=== PATIENT | male | born 1990 | race Caucasian/White ===

== ENCOUNTER 2018-10-12 03:03 | Emergency (ER) | payer OTHER ==
[2018-10-12] MEDS ORDERED: NS 0.9% 1000 ML** 2,000 ML IV ONE (03:26)
[2018-10-12] MEDS ORDERED: Ketorolac INJ* 30 MG/ML 1 ML VIAL IV PUSH ONE (03:26)
[2018-10-12] MEDS ORDERED: Ondansetron INJ* 2 MG/ML VIAL IV ONE (03:26)
[2018-10-12] MEDS ORDERED: Morphine 4 MG/ML VIAL (1 ml) 4 MG/ML VIAL IV ONE (03:26)
--- NOTE | 2018-10-12 03:34 | ED ---
Abdominal Pain/Male - HPI Summary HPI Summary: The patient is a 28 y/o M presenting to [facility] with a chief complaint of sudden onset right-sided abd pain around 1800 last night. He reports that he had been driving home from [place] when they stopped for food. At the time of eating, he felt alright but then developed the abdominal pain and nausea. He tried to vomit and have a BM without any relief. The pain continued to worsen throughout the night, and he took Advil and Pepto Bismol, which did help him feel better until 0115. The pain returned and worsened, currently rated 9/10 in severity. He denies any fever or vomiting. He is concerned for appendicitis. PMHx: asthma , kidney stone 10 years ago. Nonsmoker, occasional EtOH, marijuana use. - History of Current Complaint Chief Complaint: EDAbdPain Stated Complaint: APPENDICITIS PER PT Time Seen by Provider: 10/12/18 03:22 Hx Obtained From: Patient Onset/Duration: Sudden Onset, Lasting Hours - since 1800, Still Present Timing: Lasting Hours Severity Initially: Severe Severity Currently: Severe Pain Intensity: 9 Pain Scale Used: 0-10 Numeric Location: Other - right-sided Radiates: No Character: Sharp Aggravating Factor(s): Nothing Alleviating Factor(s): Other: - Advil and Pepto Bismol Associated Signs And Symptoms: Positive: Nausea. Negative: Fever, Vomiting - Allergies/Home Medications Allergies/Adverse Reactions: Allergies Allergy/AdvReac Type Severity Reaction Status Date / Time No Known Allergies Allergy Verified 10/12/18 03:07 Home Medications: Home Medications Albuterol HFA INHALER* [Ventolin HFA Inhaler*] 2 puff INH Q4HR PRN 10/12/18 [ History Confirmed 10/12/18] PMH/Surg Hx/FS Hx/Imm Hx Endocrine/Hematology History: Denies: Hx Diabetes Cardiovascular History: Denies: Hx Hypertension Respiratory History: Reports: Hx Asthma History: Reports: Hx Kidney Stones - Surgical History Surgical History: None Surgery Procedure, Year, and Place: none Infectious Disease History: No Infectious Disease History: Denies: Traveled Outside the [place] in Last 30 Days - Family History Known Family History: Negative: Diabetes - Social History Alcohol Use: Occasionally Hx Substance Use: Yes Substance Use Type: Reports: Marijuana Hx Tobacco Use: No Smoking Status (MU): Never Smoked Tobacco Review of Systems Negative: Fever Positive: Abdominal Pain - right-sided, Nausea. Negative: Vomiting All Other Systems Reviewed And Are Negative: Yes Physical Exam - Summary Physical Exam Summary: Appearance: Well-appearing, Well-nourished, In quite a bit of pain, somewhat fidgety, perhaps colickly Skin: Warm, dry, no obvious rash Eyes: sclera anicteric, no conjunctival pallor ENT: mucous membranes moist, pharynx appears normal Neck: Supple, nontender Respiratory: Clear to auscultation, no signs of respiratory distress Cardiovascular: Normal S1, S2. No murmurs. Normal distal pulses in tibial and radial bilaterally. Abdomen: Soft, tenderness in right side, apprehensiveness occludes reliable exam , normal active bowel sounds present Musculoskeletal: Normal, Strength/ROM Intact Neurological: A&Ox3, awake and alert, mentation is normal, speech is fluent and appropriate Psychiatric: affect is normal, does not appear anxious or depressed Triage Information Reviewed: Yes Vital Signs On Initial Exam: Initial Vitals Temp Pulse Resp BP Pulse Ox 98.2 F 69 19 129/84 100 10/12/18 03:04 10/12/18 03:04 10/12/18 03:04 10/12/18 03:04 10/12/18 03:04 Vital Signs Reviewed: Yes Diagnostics - Vital Signs Vital Signs Temp Pulse Resp BP Pulse Ox 10/12/18 03:04 98.2 F 69 19 129/84 100 - Laboratory Result Diagrams: 10/12/18 03:28 10/12/18 03:28 Lab Statement: Any lab studies that have been ordered have been reviewed, and results considered in the medical decision making process. - CT Abd/Pel CT CT Interpretation Completed By: Radiologist Summary of CT Findings: Impression: Four millimeter calcified stone located in the right mid ureter. This causes moderate right-sided hydronephrosis with perinephric stranding. ED physician has reviewed this report. Re-Evaluation - Re-Evaluation First Eval Re-Evaluation Time: 06:00 Change: Improved Comment: We discussed results and discharge plan. His pain has improved. Abdominal Pain Male Course/Dx - Course Course Of Treatment: Patient is a 28 y/o M with cc of sudden onset right-sdied abd pain starting around 1800 last night after eating with associated nausea without vomiting or fever. Mild relief with Advil and Pepto Bismol but pain returned. Hx of kidney stones 10 years ago. Upon physical exam, the patient appears to be in quite a bit of pain, somewhat fidgety, perhaps colickly, tenderness in right side, apprehensiveness occludes reliable exam. In the ED course, the patient was administered fluids, Zofran, Morphine, and Toradol. Blood work reveals WBCs of 11.7, abs neuts of 8.6, and total bili of 1.40. UA reveals 1+ protein, 1+ ketones, 3+ blood, and 3+ RBCs. Abdominopelvic CT Impression: Four millimeter calcified stone located in the right mid ureter. This causes moderate right-sided hydronephrosis with perinephric stranding. He will be discharged home with urology follow up. He agrees with this plan. - Diagnoses Provider Diagnoses: Renal colic on right side Discharge - Sign-Out/Discharge Documenting (check all that apply): Patient Departure - Patient will be discharged home. Patient Received Moderate/Deep Sedation with Procedure: No - Discharge Plan Condition: Stable Disposition: HOME Prescriptions: Ondansetron ODT TAB* [Zofran 4 MG Odt TAB*] 8 mg PO Q6H PRN #15 tab.odt PRN Reason: Nausea oxyCODONE/Acetamin 5/325 MG* [Percocet 5/325 TAB*] 2 tab PO Q4H PRN #15 tab MDD 6 PRN Reason: Pain - Severe Patient Education Materials: Renal Colic (ED) Referrals: Kehinde Rodriguez MD [Primary Care Provider] - Gordo Ivey MD [Medical Doctor] - Additional Instructions: Take 2 alleve OTC twice a day as a baseline until you pass the stone, and supplement that with the percocet as needed. If the stone does not pass by Tuesday, contact the urologist for further assistance. - Billing Disposition and Condition Condition: STABLE Disposition: Home - Attestation Statements Document Initiated by Scribe: Yes Documenting Scribe: Lashawn Dejesus Provider For Whom Hallie is Documenting (Include Credential): Dr. Andrez Simental MD Scribe Attestation: Lashawn Wilhelm scribed for Dr. Andrez Simental MD on 10/16/18 at 0146. Scribe Documentation Reviewed: Yes Provider Attestation: The documentation as recorded by the anastasiyaibamanda, Lashawn Dejesus accurately reflects the service I personally performed and the decisions made by me, Dr. Andrez Simental MD Status of Hallie Document: Viewed
[2018-10-12 03:50] LABS: ABS Eosinophils 0.1 10^3/ul (0-0.6); ABS Lymphocytes 2.1 10^3/ul (1.0-4.8); ABS Monocytes 0.8 10^3/ul (0-0.8); ABS Neutrophils 8.6 10^3/ul (1.5-7.7); Eosinophil % 0.9 %; Hematocrit 46 % (42-52); Hemoglobin 15.5 g/dL (14.0-18.0); Lymphocyte % 17.9 %; Mean Corpuscular HGB Conc 34 g/dL (31-36); Mean Corpuscular Hemoglobin 33 pg (27-31); Mean Corpuscular Volume 96 fL (80-94); Nucleated Red Blood Cells % 0.1; Platelet Count 256 10^3/uL (150-450); Red Blood Count 4.78 10^6 /uL (4.18-5.48); Red Cell Distribution Width 13 % (10-15); White Blood Count 11.7 10^3/uL (3.5-10.8)
[2018-10-12 03:59] LABS: Urine Appearance Cloudy; Urine Bacteria Absent (Absent); Urine Bilirubin Negative (Negative); Urine Blood 3+ (Negative); Urine Color Yellow; Urine Glucose Negative (Negative); Urine Ketones 1+ (Negative); Urine Nitrite Negative (Negative); Urine Protein 1+(30 mg/dL) (Negative); Urine Red Blood Cell 3+(>10/hpf) (Absent); Urine Specific Gravity 1.026 (1.010-1.030); Urine Urobilinogen Negative (Negative); Urine White Blood Cell Absent (Absent)
[2018-10-12 04:02] LABS: Albumin 4.6 g/dL (3.2-5.2); Albumin/Globulin Ratio 1.8 (1-3); BUN/Creatinine Ratio 14.3 (8-20); C Reactive Protein 1.34 mg/L (<8.01); Calcium 9.6 mg/dL (8.6-10.3); EGFR African American 93.8 (>60); EGFR Non-African American 77.5 (>60); Globulin 2.5 g/dL (2-4); Potassium 3.5 mmol/L (3.5-5.0); Total Bilirubin 1.4 mg/dL (0.2-1.0); Total Protein 7.1 g/dL (6.4-8.9)
[2018-10-12 06:14] VITALS: BP 111/72
== END 2018-10-12 06:26 | disposition home or self-care (01) ==
LOC: ED 03:03
DX: N23 Unspecified renal colic (principal); J45.909 Unspecified asthma, uncomplicated; Z79.899 Other long term (current) drug therapy; N13.2 Hydronephrosis with renal and ureteral calculous obstruction
CPT/HCPCS: 36415; 74176; 80053; 81003; 81015; 83690; 85025; 86140; 96361; 96374; 96375; 99283; J1885; J2270; J2405